=== PATIENT | female | born 1980 | race Caucasian/White ===

== ENCOUNTER 2021-05-08 20:44 | Emergency (ER) | payer SELFPAY ==
[~2021-05-08] VITALS: Ht 162.6 cm; Wt 84.1 kg
[2021-05-08 21:37] LABS: BASOPHILS % (AUTO) 0.3 % (0.0-2.0); EOSINOPHILS % (AUTO) 2.1 % (1.0-6.0); HEMATOCRIT 44.1 % (36-46); HEMOGLOBIN 14.7 g/dL (12.0-16.0); MEAN CORPUSCULAR HEMOGLOBIN 28.8 pg (26.0-34.0); MEAN CORPUSCULAR HGB CONC 33.4 G/dL (31.0-37.0); MEAN CORPUSCULAR VOLUME 86 fL (80-100); MONOCYTES # (AUTO) 0.7 K/uL (0.1-1.0); MONOCYTES % (AUTO) 6.9 % (2.0-9.0); NEUTROPHILS # (AUTO) 6.7 K/uL (1.8-7.7); NEUTROPHILS % (AUTO) 69.7 % (40.0-70.0); PLATELET COUNT (AUTO) 332 K/uL (150-450); RED BLOOD CELL COUNT(AUTO) 5.12 MIL/uL (4.00-5.20); RED CELL DISTRIBUTION WIDTH 14.6 % (11.5-14.5)
[2021-05-08 21:45] LABS: ANION GAP 9 mmol/L (8-16); CALCIUM, TOTAL 9.1 mg/dL (8.8-10.5); CARBON DIOXIDE 27 mmol/L (22-29); CHLORIDE 102 mmol/L (98-107); CREATININE 0.85 mg/dL (0.60-1.30); GLOMERULAR FILTR. RATE CALC > 60 mL/min (>60); GLUCOSE,RANDOM 95 mg/dL (70-110); POTASSIUM 3.7 mmol/L (3.5-5.1); SODIUM SERUM 138 mmol/L (136-145); UREA NITROGEN, BLOOD 15 mg/dL (7-18)
[2021-05-08 22:47] LABS: COVID AG,FIA SOURCE NASAL SWAB
[2021-05-09] MEDS ORDERED: SODIUM CHLORIDE 0.9% 100 ML ONE (00:59)
[2021-05-09] MEDS ORDERED: IOHEXOL 350 MG/ML 100 ML VIAL ONE (01:00)
[2021-05-09 03:45] VITALS: BP 135/68
[2021-05-09] MEDS ORDERED: HYDR50CA7 PO (03:46)
== END 2021-05-09 04:47 | disposition home or self-care (01) ==
LOC: EMS 20:46
DX: R07.89 Other chest pain (principal); R06.02 Shortness of breath; R51.9 Headache, unspecified; R42 Dizziness and giddiness; F17.210 Nicotine dependence, cigarettes, uncomplicated; Z20.822 Contact with and (suspected) exposure to COVID-19
CPT/HCPCS: 36415; 70450; 71045; 71275; 80048; 84484; 85025; 87426; 93005; 99285; J7050; Q9967